=== PATIENT | female | born 1975 | race Caucasian/White ===

== ENCOUNTER 2017-12-10 11:42 | Emergency (ER) | payer OTHER ==
[~2017-12-10] VITALS: Ht 154.9 cm; Wt 45.9 kg
[2017-12-10 11:47] VITALS: TEMP 97.8
[2017-12-10] MEDS ORDERED: SYNTHROID0.075 MG/T PO (11:56)
[2017-12-10 12:46] LABS: COLLECTION METHOD CLEAN CATCH
[2017-12-10 12:56] LABS: BASO % 0.5 % (0.0-2.0); EOS # 0.1 (0.0-0.7); EOS % 1.2 % (0-4.0); GRAN # 3.8 (1.4-6.5); GRAN % 66.4 % (42.2-75.2); HEMOGLOBIN 11.5 g/dl (12.5-16.0); LYMPH # 1.4 (1.2-3.4); MEAN CELL VOLUME 95 fl (80.0-100.0); MEAN CORPUSCULAR HEMOGLOBIN 31 pg (27.0-31.0); MEAN CORPUSCULAR HGB CONC 33 g/dl (33.0-37.0); MEAN PLATELET VOLUME 11.3 fl (7.4-10.4); MONO # 0.4 (0.1-0.6); MONO % 7.7 % (1.7-9.3); PLATELET COUNT 224 K/mm3 (130-400); REDCELL DISTRIBUTION WIDTH-CV 13.8 % (11.5-14.5)
[2017-12-10 13:00] LABS: BILIRUBIN,TOTAL 0.4 mg/dL (0.0-1.0); CALCIUM 8.9 mg/dL (8.4-10.2); CREATININE, serum 0.7 mg/dL (0.52-1.25); HEMATOCRIT 35.1 % (37.0-47.0); POTASSIUM 3.7 mmol/L (3.4-5.0)
[2017-12-10 13:05] LABS: PH 7 (5-8); SQUAMOUS EPITHELIAL 0-2 /hpf; URINE APPEARANCE Cloudy; URINE BACTERIA None Seen /hpf; URINE BILIRUBIN Negative (NEGATIVE); URINE BLOOD 3+ (NEGATIVE); URINE CALCIUM OXALATE CRYSTAL Present /hpf; URINE COLOR Red; URINE GLUCOSE Negative (NEGATIVE); URINE KETONE Negative (NEGATIVE); URINE LEUKOCYTE ESTERASE Negative (NEGATIVE); URINE NITRATE Negative (NEGATIVE); URINE PROTEIN(semi-quant) 2+ (NEGATIVE); URINE RBC >50 /hpf; URINE UROBILINOGEN Negative (NEGATIVE)
[2017-12-10 13:08] LABS: PROTHROMBIN TIME 11.7 SECONDS (9.7-12.8)
[2017-12-10 13:16] LABS: PROLACTIN 16.4 ng/mL (3.0-18.6)
[2017-12-10 13:31] LABS: TSH w REFLEX 2.68 uIU/mL (0.465-4.680)
[2017-12-10] MEDS ORDERED: NAPROSYN500 MG PO (13:59)
[2017-12-10 14:25] VITALS: BP 122/66; PULSE 70
[2017-12-11 12:53] LABS: ESTRADIOL 326 pg/mL (()); TESTOSTERONE, TOTAL 37 ng/dL (14-53)
== END 2017-12-10 14:27 | disposition home or self-care (01) ==
LOC: COL.ER 11:42
PROVIDERS: Nurse Practitioner Primary Care
DX: N83.201 Unspecified ovarian cyst, right side (principal); N80.9 Endometriosis, unspecified; N93.8 Other specified abnormal uterine and vaginal bleeding; E03.9 Hypothyroidism, unspecified; Z98.890 Other specified postprocedural states

== ENCOUNTER → 2019-01-21 | Outpatient (CLI) | payer OTHER ==
[~2019-01-21] MED LIST: NAPROSYN500 MG PO; SYNTHROID0.075 MG/T PO
== END ==
LOC: COL.RAD 01-18 11:30
DX: N94.89 Other specified conditions associated with female genital organs and menstrual cycle (principal)
CPT/HCPCS: Q9967